=== PATIENT | female | born 1945 | race Caucasian/White ===

== ENCOUNTER → 2017-02-07 | Outpatient (CLI) | payer MEDICARE, OTHER ==
[~2017-02-07] MED LIST: ASPIRIN EC81 M1 PO; B COMPLEX1 CA1 PO; CALAN PO; CELEXA20 MG PO; FISH OIL 1,0001 CA2 PO; INHALER FOR COPD; KEFLEX500 MG PO; VITAMIN D PO; VITAMIN D1000 UNIT PO; VOLTAREN75 MG PO
--- NOTE | ~2017-02-07 | MY11 ---
[facility] A Service of [facility] / [facility] RADIOLOGY TEXT RESULTS PATIENT: NILDA WINTERS LOCATION: [facility] : 43 UNIT #: [id number] AGE: [address]: Enid Andrews MD SEX: F ORDER DR: [id number] [address] [address] [id number] O MR#: [id number] Acc #: [id number] NAME: NILDA WINTERS : 1945 SEX: F STUDY DATE/TIME: 02/07/2017 11:15 UNIT: [facility] ROOM: STUDY DESCRIPTION: MY Mammogram Screening Dig Richardson Attending Physician: Enid Andrews M.D. Referring Physician: Enid Andrews M.D. Ordering Physician: Enid Andrews M.D. Primary Care Physician: Enid Andrews M.D. MEDICAL IMAGING REPORT This report is preliminary unless electronic signature is present. EXAM Digital screening mammogram, 02/07/2017, [facility]. HISTORY 71-year-old woman; strong family history, sister age 35, maternal aunt age 45, cousin age 68. Previous benign breast biopsies. Annual screening. COMPARISON 05/13/2009, 08/21/2010, 04/04/2012, 09/06/2014. FINDINGS Digital imaging of each breast was completed, utilizing screening protocol. Review includes FDA-approved CAD device. Breast parenchyma is heterogeneously dense, with fibronodular pattern occupying anterior and middle thirds of each breast. Subareolar duct prominence is stable bilaterally. The focal opacity, mid central left breast on the craniocaudal views, is unchanged dating back to our original mammograms, dated 05/13/2009. I see no interval occurring suspicious mass and no suspicious microcalcifications. There is no architectural deformity. IMPRESSION Stable benign mammogram. Annual screening recommended. Patients over the age of 40 are entered into a reminder system with target due date for the next mammogram. A result letter will also be sent to the patient. BIRADS: 2 Benign finding. [facility] A Service of [facility] / [facility] RADIOLOGY TEXT RESULTS PATIENT: NILDA WINTERS LOCATION: [facility] : 43 UNIT #: [id number] AGE: [address]: Enid Andrews MD SEX: F ORDER DR: Dictated by... Gunnar Everett M.D. THIS IS AN ELECTRONICALLY VERIFIED REPORT Gunnar Everett M.D. at 02/08/2017 7:04 AM Esteban TD: 02/07/2017 16:00 JOB #: [id number] MEDICAL IMAGING REPORT Page 1 of 1
== END | disposition home or self-care (01) ==
LOC: SMAM 10:37
DX: Z12.31 Encounter for screening mammogram for malignant neoplasm of breast (principal); Z80.3 Family history of malignant neoplasm of breast; Z91.89 Other specified personal risk factors, not elsewhere classified
CPT/HCPCS: G0202